=== PATIENT | male | born 1970 | race Native Hawaiian/Other Pacific Islander ===

== ENCOUNTER 2020-03-20 15:21 | Outpatient (CLI) | payer OTHER | END 2020-03-20 20:50 | disposition home or self-care (01) | LOC: RAD 15:21 | PROVIDERS: ATTEND Family Medicine | DX: M25.532 Pain in left wrist (principal) ==

== ENCOUNTER 2020-08-31 13:23 | Outpatient (CLI) | payer OTHER | END 2020-08-31 17:00 | disposition home or self-care (01) | LOC: LABW 13:23 | PROVIDERS: ATTEND Nurse Practitioner | DX: R19.7 Diarrhea, unspecified (principal) | CPT/HCPCS: 82272; 83630; 87015; 87045; 87324; 87328; 87329; 87449; 87899 ==